=== PATIENT | male | born 1950 | race Caucasian/White ===

== ENCOUNTER 2022-05-22 12:49 | Emergency (ER) | payer MEDICARE, OTHER ==
[~2022-05-22] VITALS: Ht 190.5 cm; Wt 88.6 kg
[2022-05-22 13:09] LABS: BILIRUBIN,URINE NEGATIVE (NEGATIVE); CLARITY,URINE CLOUDY; COLOR,URINE YELLOW; GLUCOSE, URINE (UA) NEGATIVE (NEGATIVE); KETONES,URINE TRACE (NEGATIVE); LEUKOCYTE ESTERASE ,URINE NEGATIVE (NEGATIVE); NITRITE,URINE NEGATIVE (NEGATIVE); PH,URINE 6.5 (5-9); PROTEIN,URINE NEGATIVE (NEGATIVE)
--- NOTE | 2022-05-22 13:09 | ED GU-Male ---
General Chief Complaint: - Reproductive Stated Complaint: URINARY RETENTION Source: patient History of Present Illness Date Seen by Provider: May 22, 2022 Time Seen by Provider: 12:57 Initial Comments 71-year-old male presenting with complaints of suprapubic pain and unable to urinate since around 10 PM. He states that he just dribbles a small amount of urine. He has had issues with swollen prostate previously and seems to be worse if he is drinking "off brand" beer. He had went to a [employer] last night and drink some beer at the event. He denies having nausea, vomiting, fever, chills, pain with urination. He has the urge to urinate but is unable to get anything to pass. He denies having symptoms severe or being unable to urinate like this in the past. Severity/Quality: severe, other (Pressure) Location: suprapubic Radiation: suprapubic Activities at Onset: sleep Modifying Factors: Worsens With Palpation Associated Symptoms: No diaphoresis, No dysuria, No fever/chills, No loss of bladder control, No lower back pain, No lumps, No mass, No nausea/vomiting, No nocturia, No polyuria, No swelling, No syncope, No urinary frequency Allergies and Home Medications Allergies Coded Allergies: No Known Drug Allergies (Unverified , 05/22/22) Patient Home Medication List Home Medication List Reviewed: Yes Review of Systems Review of Systems Constitutional: No chills, No fever EENTM: no symptoms reported Respiratory: no symptoms reported Cardiovascular: no symptoms reported Gastrointestinal: see HPI Genitourinary: see HPI Musculoskeletal: no symptoms reported Skin: no symptoms reported Psychiatric/Neurological: No Symptoms Reported Endocrine: No Symptoms Reported Past Olrojag-Dvnldf-Ocxhld Hx Patient Social History Alcohol Use?: Yes Alcohol type: Beer Physical Exam Vital Signs Vital Signs - First Documented 05/22/22 12:52 Temp 36.8 Pulse 97 Resp 16 B/P (MAP) 154/108 (123) Pulse Ox 97 O2 Delivery Room Air Capillary Refill : Height, Weight, BMI Height: '" Weight: lbs. oz. kg; BMI Method: General Appearance: WD/WN, moderate distress HEENT: PERRL/EOMI, pharynx normal Neck: non-tender, full range of motion, supple, normal inspection Cardiovascular: normal peripheral pulses, regular rate, rhythm Respiratory: chest non-tender, lungs clear, normal breath sounds, no respira tory distress, no accessory muscle use Gastrointestinal: normal bowel sounds, soft, no pulsatile mass, distended (Suprapubic and lower abdominal distended), guarding; No rebound; tenderness (Suprapubic) Rectal: deferred Extremities: normal range of motion, non-tender, normal capillary refill Neurologic/Psychiatric: alert, oriented x 3 Skin: normal color, warm/dry Progress/Results/Core Measures Suspected Sepsis SIRS Temperature: Pulse: Respiratory Rate: Blood Pressure / Mean: Results/Orders Lab Results Laboratory Tests Test 05/22/22 13:00 Range/Units Urine Color YELLOW Urine Clarity CLOUDY Urine pH 6.5 5-9 Urine Specific [place] 1.015 L 1.016-1.022 Urine Protein NEGATIVE NEGATIVE Urine Glucose (UA) NEGATIVE NEGATIVE Urine Ketones TRACE H NEGATIVE Urine Nitrite NEGATIVE NEGATIVE Urine Bilirubin NEGATIVE NEGATIVE Urine Urobilinogen 0.2 < = 1.0 MG/DL Urine Leukocyte Esterase NEGATIVE NEGATIVE Urine RBC (Auto) 3+ H NEGATIVE Urine RBC >100 H /HPF Urine WBC NONE /HPF Urine Crystals NONE /LPF Urine Bacteria NEGATIVE /HPF Urine Casts NONE /LPF Urine Mucus NEGATIVE /LPF Urine Culture Indicated NO My Orders Orders - ZAID BENZ MD Lion Cath (05/22/22 13:02) Ua Culture If Indicated (05/22/22 13:02) Vital Signs/I&O 05/22/22 05/22/22 12:52 13:24 Temp 36.8 36.8 Pulse 97 97 Resp 16 16 B/P (MAP) 154/108 (123) 127/88 Pulse Ox 97 97 O2 Delivery Room Air Room Air Capillary Refill : Progress Note #1: Progress Note Lion catheter to drain bladder and see how much urine is present. UA to check for UTI. Progress Note #2: Time: 13:17 Progress Note UA is clear of infection. He has blood present on specimen. Counseled on urinary retention and need to leave catheter in place for letting his bladder recover from the stretching with retention. Follow up with Urology this week to see when he can have catheter removed and follow up about his prostate. Departure Impression Primary Impression: Acute urinary retention Disposition: 01 HOME, SELF-CARE Condition: Stable Departure-Patient Inst. Decision time for Depature: 13:19 Referrals: NO,LOCAL PHYSICIAN (PCP) Primary Care Physician LIZA ISAAC MD Patient Instructions: Urinary Retention (DC), How to Care for Your Lion Ca theter, Male Add. Discharge Instructions: Leave catheter in place to allow the bladder to recover from being stretched out due to retained urine and being unable to urinate. Call Urology in the morning to arrange follow up and evaluation for your Urinary Retention and when you could have the catheter removed. Urology can also see you about your prostate and see if you need medicine to help with that. All discharge instructions reviewed with patient and/or family. Voiced understan ding. ZAID BENZ MD May 22, 2022 13:09
[2022-05-22 13:15] LABS: RBC,URINE >100 /HPF
[2022-05-22 13:16] LABS: BACTERIA,URINE NEGATIVE /HPF
[2022-05-22 13:24] VITALS: BP 127/88
== END 2022-05-22 13:27 | disposition home or self-care (01) ==
LOC: ER FS 12:50
DX: R33.9 Retention of urine, unspecified (principal); Z28.310 Unvaccinated for COVID-19
CPT/HCPCS: 51702; 81000